=== PATIENT | female | born 1960 | race American Indian/Alaskan Native ===

== ENCOUNTER 2017-02-02 12:06 | Emergency (ER) | payer SELFPAY ==
[2017-02-02] MEDS ORDERED: DUONEB *Not for PRN Use IH ONE ×4 (12:39→16:42)
[2017-02-02] MEDS ORDERED: NACL 0.9% 500 ML 500 ML IV ONE (12:54)
[2017-02-02] MEDS ORDERED: ATROVENT IH ONE (12:54)
[2017-02-02] MEDS ORDERED: PROVENTIL IH ONE (12:54)
[2017-02-02] MEDS ORDERED: MAGNESIUM SULFATE 2GM/50ML 2 GM/50 ML BAG IV ONE (12:55)
--- NOTE | 2017-02-02 12:56 | Emergency Department Report ---
ED General Adult HPI - General Chief complaint: Adult Asthma Stated complaint: ASTHMA/CHEST PAIN Time Seen by Provider: 02/02/17 12:50 Source: patient, RN notes reviewed Mode of arrival: Ambulatory Limitations: No Limitations - History of Present Illness Initial comments: This is a 56-year-old female. She is previously unknown to me. She has a past medical history of COPD, asthma. She recently moved here from [place]. The patient presents to the ER complaining of cough, chest tightness, bilateral lower extremity pain, wheezing, difficulty breathing. Patient reports walking a lot over the past 2 days. Her chest tightness is central, and does not radiate to the back, arms or neck. She reports that she recently got into a disagreement with her daughter, and started walking all around. She is not homicidal or suicidal. She is not expressing hallucinations. Her symptoms are constant. They're getting worse. They worse with physical exertion, they decrease with rest. -: Gradual Location: chest Radiation: non-radiation Severity scale (0 -10): 5 Quality: aching Consistency: intermittent Improves with: rest Worsens with: movement Associated Symptoms: chest pain, cough, malaise, shortness of breath, weakness. denies: confusion, diaphoresis, fever/chills, headaches, loss of appetite, nausea/vomiting, rash, seizure - Related Data Previous Rx's Medication Instructions Recorded Last Taken Type Albuterol Sulfate [Albuterol 0.63% 0.63 mg IH TID PRN #1 box 02/02/17 Unknown Rx NEBS] Azithromycin [Zithromax Z-BARTOLO] 250 mg PO DAILY #6 tablet 02/02/17 Unknown Rx Ipratropium [Atrovent NEB] 0.5 mg IH Q6HRT #1 box 02/02/17 Unknown Rx Nebulizer/Compressor [Innospire 1 each MC DAILY #1 each 02/02/17 Unknown Rx Deluxe Carlyn Neb] Prednisone [predniSONE 10 mg 10 mg PO .TAPER #1 tab.ds.pk 02/02/17 Unknown Rx (6-Day Pack, 21 Tabs)] Allergies Allergy/AdvReac Type Severity Reaction Status Date / Time amoxicillin Allergy Hives Verified 02/02/17 12:33 ED Review of Systems ROS: Stated complaint: ASTHMA/CHEST PAIN Other details as noted in HPI Constitutional: malaise, weakness. denies: fever Eyes: denies: eye discharge ENT: congestion. denies: epistaxis Respiratory: shortness of breath, SOB with exertion, SOB at rest, wheezing Cardiovascular: chest pain, dyspnea on exertion Gastrointestinal: denies: vomiting Genitourinary: denies: dysuria Musculoskeletal: arthralgia, myalgia Skin: denies: lesions Neurological: weakness Psychiatric: anxiety. denies: homicidal thoughts, suicidal thoughts ED Past Medical Hx - Past Medical History Hx Asthma: Yes Hx COPD: Yes - Surgical History Additional Surgical History: c section & R arm surgery - Social History Smoking Status: Current Every Day Smoker Substance Use Type: None - Medications Home Medications: Home Medications Medication Instructions Recorded Confirmed Last Taken Type Albuterol Sulfate [Albuterol 0.63% 0.63 mg IH TID PRN #1 box 02/02/17 Unknown Rx NEBS] Azithromycin [Zithromax Z-BARTOLO] 250 mg PO DAILY #6 tablet 02/02/17 Unknown Rx Ipratropium [Atrovent NEB] 0.5 mg IH Q6HRT #1 box 02/02/17 Unknown Rx Nebulizer/Compressor [Innospire 1 each MC DAILY #1 each 02/02/17 Unknown Rx Deluxe Carlyn Neb] Prednisone [predniSONE 10 mg 10 mg PO .TAPER #1 tab.ds.pk 02/02/17 Unknown Rx (6-Day Pack, 21 Tabs)] ED Physical Exam - General Limitations: No Limitations General appearance: alert, in distress - Head Head exam: Present: atraumatic, normocephalic - Eye Eye exam: Present: normal appearance, EOMI - ENT ENT exam: Present: normal exam, normal orophraynx, mucous membranes moist, normal external ear exam - Neck Neck exam: Present: normal inspection, full ROM. Absent: tenderness, meningismus - Respiratory Respiratory exam: Present: respiratory distress, wheezes, rhonchi - Cardiovascular Cardiovascular Exam: Present: normal rhythm, tachycardia, normal heart sounds. Absent: systolic murmur, diastolic murmur, rubs, gallop - GI/Abdominal GI/Abdominal exam: Present: soft, normal bowel sounds. Absent: distended, tenderness, guarding, rebound, rigid, pulsatile mass - Extremities Exam Extremities exam: Present: normal inspection, full ROM, normal capillary refill , calf tenderness. Absent: pedal edema, joint swelling - Back Exam Back exam: Present: normal inspection, full ROM. Absent: tenderness, CVA tenderness (R), CVA tenderness (L), muscle spasm, paraspinal tenderness, vertebral tenderness - Neurological Exam Neurological exam: Present: alert, oriented X3, other (Extraocular movements intact. Tongue midline. No facial droop. Facial sensation intact to light touch in the V1, V2, V3 distribution bilaterally. 5 and 5 strength in 4 extremities.. Sensation is intact to light touch in 4 extremities.). Absent: motor sensory deficit - Psychiatric Psychiatric exam: Present: anxious. Absent: homicidal ideation, suicidal ideation - Skin Skin exam: Present: warm, dry, intact, normal color. Absent: rash ED Course Vital Signs 02/02/17 02/02/17 02/02/17 12:26 12:47 12:48 Temperature 98.1 F Pulse Rate 75 112 H Respiratory 24 24 Rate Blood Pressure 115/78 Blood Pressure 135/65 [Left] O2 Sat by Pulse 98 100 94 Oximetry 02/02/17 02/02/17 13:39 14:24 Temperature Pulse Rate 108 H 102 H Respiratory 22 20 Rate Blood Pressure Blood Pressure 121/79 120/69 [Left] O2 Sat by Pulse 96 100 Oximetry ED Medical Decision Making - Lab Data Result diagrams: 02/02/17 13:25 02/02/17 13:25 Vital Signs 02/02/17 02/02/17 02/02/17 12:26 12:47 12:48 Temperature 98.1 F Pulse Rate 75 112 H Respiratory 24 24 Rate Blood Pressure 115/78 Blood Pressure 135/65 [Left] O2 Sat by Pulse 98 100 94 Oximetry 02/02/17 02/02/17 13:39 14:24 Temperature Pulse Rate 108 H 102 H Respiratory 22 20 Rate Blood Pressure Blood Pressure 121/79 120/69 [Left] O2 Sat by Pulse 96 100 Oximetry Labs 02/02/17 02/02/17 02/02/17 13:25 13:25 13:25 WBC 11.3 H RBC 4.35 Hgb 13.5 Hct 40.6 MCV 93 MCH 31 MCHC 33 RDW 13.8 Plt Count 206 Lymph % (Auto) 27.0 [place] % (Auto) 8.6 H Eos % (Auto) 5.6 H Baso % (Auto) 0.3 Lymph # 3.0 [place] # 1.0 H Eos # 0.6 H Baso # 0.0 Seg Neutrophils % 58.5 Seg Neutrophils # 6.6 PT 13.8 INR 1.01 D-Dimer Sodium 143 Potassium 3.9 Chloride 103.9 Carbon Dioxide 24 Anion Gap 19 BUN 17 Creatinine 0.7 Estimated GFR > 60 BUN/Creatinine Ratio 24.28 Glucose 139 H Calcium 9.4 Magnesium Total Bilirubin 0.40 AST 13 ALT 20 Alkaline Phosphatase 92 Total Creatine Kinase Troponin T < 0.010 NT-Pro-B Natriuret Pep Total Protein 7.5 Albumin 4.3 Albumin/Globulin Ratio 1.3 02/02/17 02/02/17 13:25 13:25 WBC RBC Hgb Hct MCV MCH MCHC RDW Plt Count Lymph % (Auto) [place] % (Auto) Eos % (Auto) Baso % (Auto) Lymph # [place] # Eos # Baso # Seg Neutrophils % Seg Neutrophils # PT INR D-Dimer < 135 Sodium Potassium Chloride Carbon Dioxide Anion Gap BUN Creatinine Estimated GFR BUN/Creatinine Ratio Glucose Calcium Magnesium 2.60 H Total Bilirubin AST ALT Alkaline Phosphatase Total Creatine Kinase 118 Troponin T NT-Pro-B Natriuret Pep 6.90 Total Protein Albumin Albumin/Globulin Ratio - EKG Data -: EKG Interpreted by Pa - EKG Data 02/02/17 15:27 Sinus tachycardia, 114 beats per minute, motion artifact, not morphologically consistent with STEMI, there is no prior EKG available for comparison, normal axis, normal intervals. - Radiology Data Radiology results: report reviewed, image reviewed X-ray the chest is negative for acute disease - Medical Decision Making Differential diagnosis: Asthma exacerbation, COPD exacerbation, acute coronary syndrome, pneumonia, myositis Assessment and plan: 36-year-old female with cough, chest tightness, wheezing, increased work of breathing. Low risk by well's criteria, d-dimer negative. Troponin negative. Patient was treated aggressively with albuterol, Atrovent, steroids and magnesium. She was observed in the ER for a prolonged period of time, and had persistent wheezing and work of breathing. Given her persistent wheezing, work of breathing, lack of outpatient primary care follow-up, patient admitted. The case is presented to the Hospital physician, Dr. Hernandez, who accepted the patient to his service. Troponin negative, x-ray not consistent with pneumonia, CK negative, therefore not consistent with myositis. Critical care attestation.: If time is entered above; I have spent that time in minutes in the direct care of this critically ill patient, excluding procedure time. ED Disposition Clinical Impression: COPD exacerbation Disposition: OP ADMIT IP TO THIS HOSP Is pt being admited?: Yes Does the pt Need Aspirin: Yes Condition: Good Instructions: Chronic Obstructive Pulmonary Disease (ED) Prescriptions: Albuterol Sulfate [Albuterol 0.63% NEBS] 0.63 mg IH TID PRN #1 box PRN Reason: Wheezing Azithromycin [Zithromax Z-BARTOLO] 250 mg PO DAILY #6 tablet Ipratropium [Atrovent NEB] 0.5 mg IH Q6HRT #1 box Nebulizer/Compressor [Innospire Deluxe Carlyn Neb] 1 each MC DAILY #1 each Prednisone [predniSONE 10 mg (6-Day Pack, 21 Tabs)] 10 mg PO .TAPER #1 tab.ds.pk
[2017-02-02 13:43] LABS: Basophils % (Auto) 0.3 % (0.0-1.8); Eosinophils % (Auto) 5.6 % (0.0-4.3); Hematocrit 40.6 % (30.3-42.9); Hemoglobin 13.5 gm/dl (10.1-14.3); Mean Corpuscular HGB Conc 33 % (30-34); Mean Corpuscular Hemoglobin 31 pg (28-32); Mean Corpuscular Volume 93 fl (79-97); Platelet Count 206 K/mm3 (140-440); Red Blood Count 4.35 M/mm3 (3.65-5.03); Red Cell Distribution Width 13.8 % (13.2-15.2); White Blood Count 11.3 K/mm3 (4.5-11.0)
[2017-02-02 13:53] LABS: INR 1.01 (0.87-1.13)
--- NOTE | 2017-02-02 14:03 | XRay Report ---
PORTABLE CHEST INDICATION: Asthma. COMPARISON: None similar at this institution. FINDINGS: Portable, frontal chest radiograph demonstrates normal cardiomediastinal silhouette. Somewhat limited inspiration with crowded markings, more so centrally. No large pleural effusions or CHF. EKG leads. Intact bones. CONCLUSION: No significant acute chest process, as described. Thank you for the opportunity to participate in this patient's care.
[2017-02-02 14:22] LABS: Alanine Aminotransferase 20 units/L (7-56); Albumin 4.3 g/dL (3.9-5); Albumin/Globulin Ratio 1.3 %; Alkaline Phosphatase 92 units/L (35-129); Anion Gap 19 mmol/L; BUN/Creatinine Ratio 24.28; Blood Urea Nitrogen 17 mg/dL (7-17); Calcium 9.4 mg/dL (8.4-10.2); Carbon Dioxide 24 mmol/L (22-30); Chloride 103.9 mmol/L (98-107); Glucose 139 mg/dL (65-100); Potassium 3.9 mmol/L (3.6-5.0); Sodium 143 mmol/L (137-145); Total Protein 7.5 g/dL (6.3-8.2)
[2017-02-02 14:25] VITALS: BP 120/69
[2017-02-02 14:36] LABS: Magnesium 2.6 mg/dL (1.7-2.3)
--- NOTE | 2017-02-02 14:44 | History and Physical Report ---
Medications and Allergies Allergies Allergy/AdvReac Type Severity Reaction Status Date / Time amoxicillin Allergy Hives Verified 02/02/17 12:33 Home Medications Medication Instructions Recorded Confirmed Last Taken Type Unobtainable 02/02/17 02/02/17 Unknown History Exam - Constitutional Vitals: Temp Pulse Resp BP Pulse Ox 98.1 F 102 H 20 120/69 100 02/02/17 12:26 02/02/17 14:24 02/02/17 14:24 02/02/17 14:24 02/02/17 14:24 Results - Labs CBC & Chem 7: 02/02/17 13:25 02/02/17 13:25 Labs: Abnormal lab results 02/02/17 02/02/17 02/02/17 Range/Units 13:25 13:25 13:25 WBC 11.3 H (4.5-11.0) K/mm3 [place] % (Auto) 8.6 H (0.0-7.3) % Eos % (Auto) 5.6 H (0.0-4.3) % [place] # 1.0 H (0.0-0.8) K/mm3 Eos # 0.6 H (0.0-0.4) K/mm3 Glucose 139 H (65-100) mg/dL Magnesium 2.60 H (1.7-2.3) mg/dL
--- NOTE | 2017-02-02 14:56 | Admit Criteria Form ---
Admission Criteria Documentation: COPD Clinical Indications for Admission to Inpatient Care (Place 'X' for any and all applicable criteria): Admission is indicated for ANY ONE of the following (1)(2)(3): [ ]I. Acute exacerbation by high-risk comorbidity (e.g., pneumonia, dysrhythmia, heart failure, pleural effusion, pneumothorax) or severe underlying COPD (e.g., steroid dependent) [ X]II. Inpatient admission required rather than observation care (see Chronic Obstructive Pulmonary Disease: Observation Care) because of ANY ONE of the following: [ X]a) New or pre-existing signs or symptoms of COPD (eg, dyspnea or Tachypnea at rest or with minimal activity) that persist despite outpatient and observation care treatment [ ]b) New-onset hypoxemia (room air SaO2 less than 90%, PO2 less than 60 mm Hg (8.0 kPa)) that persists despite outpatient and observation care treatment [ ]c) Worsening of pre-existing hypoxemia (eg, new or increased requirement for supplemental oxygen to maintain oxygenation at baseline level) that persists despite outpatient and observation care treatment, with oxygen treatment needs performable only in acute inpatient setting [ ]d) Hypercarbia (PCO2 greater than 40 mm Hg (5.3 kPa))-induced respiratory acidosis (pH less than 7.35) that persists despite outpatient and observation care treatment [ ]e) Supplemental oxygen or respiratory treatments for over 24 hours that are performable only in acute inpatient setting [ ]f) Chest tube placement with active evacuation (e.g., suction, drainage) (5) [ ]g) Other condition, treatment or monitoring requiring inpatient admission [ ]III. Planned invasive surgical or diagnostic procedures requiring acute- care hospitalization [ ]IV. Acute respiratory failure (e.g., uncompensated hypercarbia, severe hypoxemia) [ ]V. Severe comorbid condition (e.g., severe steroid myopathy, acute vertebral fracture) that has acutely worsened pulmonary function [ ]. Confusion state, lethargy, obtundation, stupor or coma Extended stay beyond goal length of stay may be needed for (31)(32): [ ]a ) Respiratory Failure. [ ]b) Severe or persisting hypoxemia or hypercarbia [ ]c) Severe or persistent dyspnea [ ]d) Comorbidities (e.g. chronic heart failure, atrial fibrillation with rapid response, pneumonia) [ ]e) Malnutrition The original [facility] content created by [facility] has been revised. The portions of the content which have been revised are identified through the use of italic text or in bold, and [facility] has neither reviewed nor approved the modified material. All other unmodified content is copyright [facility]. Please see references footnoted in the original [facility] edition 2016 Admission Criteria Met: Yes
[2017-02-02] MEDS ORDERED: BABY ASPIRIN PO ONE (15:29)
== END 2017-02-02 16:55 | disposition admitted as inpatient to this hospital (09) ==
LOC: ED 12:06
DX: J44.1 Chronic obstructive pulmonary disease with (acute) exacerbation (principal); F17.200 Nicotine dependence, unspecified, uncomplicated; J45.909 Unspecified asthma, uncomplicated; Z88.1 Allergy status to other antibiotic agents
CPT/HCPCS: 36415; 71010; 80053; 82550; 83735; 83880; 84484; 85025; 85379; 85610; 93005; 93010; 96365; 96375; 99285; J2930; J3475; J7040